=== PATIENT | female | born 1940 | race Caucasian/White ===

== ENCOUNTER → 2021-11-27 | Outpatient (CLI) | payer OTHER | LOC: HEART 5 13:42 | DX: I50.20 Unspecified systolic (congestive) heart failure (principal); I73.9 Peripheral vascular disease, unspecified; I08.8 Other rheumatic multiple valve diseases | CPT/HCPCS: 93306 ==

== ENCOUNTER 2021-12-21 17:03 | Emergency (ER) | payer OTHER ==
[2021-12-21 18:28] LABS: HEMOGLOBIN 12.1 gm/dl (12.3-15.3); RED BLOOD COUNT 4.34 M/UL (4.00-5.10); WHITE BLOOD COUNT 8.1 K/UL (4.5-11.0)
[2021-12-21 18:56] LABS: BUN/CREATININE RATIO 26 (0-10)
[2021-12-21] MEDS ORDERED: CEFUROXIME500 MG PO (19:14)
[2021-12-23] MEDS ORDERED: LISINOPRIL30 MG PO (11:22)
[2021-12-23] MEDS ORDERED: METOPROLOL SUCC50 MG PO (11:24)
[2021-12-23] MEDS ORDERED: LEVOTHYROXINE50 MCG PO (11:25)
[2021-12-23] MEDS ORDERED: ATORVASTATIN CA10 MG PO (11:25)
[2021-12-23] MEDS ORDERED: CEFUROXIME500 MG PO (14:02)
[2021-12-23] MEDS ORDERED: MULTIVITAMIN1 EACH PO (14:04)
[2021-12-24] MEDS ORDERED: ELIQUIS 5 MG TAB5 MG PO (09:36)
[2021-12-24] MEDS ORDERED: LASIX20 MG PO (11:57)
== END 2021-12-21 19:27 | disposition home or self-care (01) ==
LOC: ER1 17:03
PROVIDERS: Preventive Medicine Occupational Medicine
DX: R20.2 Paresthesia of skin (principal); N39.0 Urinary tract infection, site not specified; I10 Essential (primary) hypertension
CPT/HCPCS: 71045; 80053; 81001; 82550; 82553; 83690; 84484; 85025; 85652; 86140; 87077; 87086; 87186; 93005; 99284

== ENCOUNTER 2022-06-02 09:55 | Emergency (ER) | payer OTHER ==
[~2022-06-02] VITALS: Ht 165.1 cm; Wt 68.9 kg
[~2022-06-02 09:55] MED LIST: ATORVASTATIN CA10 MG PO; CEFUROXIME500 MG PO; ELIQUIS 5 MG TAB5 MG PO; LASIX20 MG PO; LEVOTHYROXINE50 MCG PO; LISINOPRIL30 MG PO; METOPROLOL SUCC50 MG PO; MULTIVITAMIN1 EACH PO
[2022-06-02 11:19] LABS: HEMOGLOBIN 11.8 gm/dl (12.3-15.3); RED BLOOD COUNT 4.15 M/UL (4.00-5.10); WHITE BLOOD COUNT 5.1 K/UL (4.5-11.0)
[2022-06-02 11:42] LABS: BUN/CREATININE RATIO 25 (0-10)
== END 2022-06-02 13:00 | disposition home or self-care (01) ==
LOC: ER1 09:55
PROVIDERS: Physician Assistant
DX: U07.1 COVID-19 (principal); Z23 Encounter for immunization; E11.9 Type 2 diabetes mellitus without complications; I11.9 Hypertensive heart disease without heart failure
CPT/HCPCS: 80053; 85025; 99284; M0222

== ENCOUNTER → 2022-06-25 | Outpatient (CLI) | payer OTHER | LOC: HEART 5 06-18 13:30 | DX: I48.91 Unspecified atrial fibrillation (principal); R00.1 Bradycardia, unspecified ==